=== PATIENT | male | born 1935 | race Caucasian/White ===

== ENCOUNTER 2019-01-01 08:27 | Inpatient (IN) | payer MEDICARE, OTHER ==
[2019-01-01] MEDS ORDERED: Aspirin 81 MG Tab.Chew PO ONE (08:32)
[2019-01-01] MEDS ORDERED: Sodium Chloride 0.9% 1,000 ML IV SCH ×2 (08:45→09:30)
[2019-01-01] MEDS ORDERED: Nitroglycerin 0.4 MG Tab.SL SL PRN (08:52)
--- NOTE | 2019-01-01 08:52 | EDM.PDOC ---
ED HPI GENERAL MEDICAL PROBLEM - General Chief Complaint: Chest Pain Stated Complaint: CHEST PAIN Time Seen by Provider: 01/01/19 08:52 Source of Information: Reports: Patient - History of Present Illness INITIAL COMMENTS - FREE TEXT/NARRATIVE: HISTORY AND PHYSICAL: History of present illness: [A shunt presents with epigastric pain 5 out of 10 radiating to the chest or 2 hours in duration no shortness of breath or diaphoresis no radiation to arm neck or jaw Review of systems: As per history of present illness and below otherwise all systems reviewed and negative. Past medical history: As per history of present illness and as reviewed below otherwise noncontributory. Surgical history: As per history of present illness and as reviewed below otherwise noncontributory. Social history: No reported history of drug or alcohol abuse. Family history: As per history of present illness and as reviewed below otherwise noncontributory. Physical exam: HEENT: Atraumatic, normocephalic, pupils reactive, negative for conjunctival pallor or scleral icterus, mucous membranes moist, throat clear, neck supple, nontender, trachea midline. Lungs: Clear to auscultation, breath sounds equal bilaterally, chest nontender. Heart: S1S2, regular, negative for clicks, rubs, or JVD. Abdomen: Soft, nondistended, nontender. Negative for masses or hepatosplenomegaly. Negative for costovertebral tenderness. Pelvis: Stable nontender. Genitourinary: Deferred. Rectal: Deferred. Extremities: Atraumatic, negative for cords or calf pain. Neurovascular unremarkable. Neuro: Awake, alert, oriented. Cranial nerves II through XII unremarkable. Cerebellum unremarkable. Motor and sensory unremarkable throughout. Exam nonfocal. Diagnostics: [CBC CMP UA troponin lipase Influenza EKG Chest 1 view ]CT abdomen pelvis no contrast Therapeutics: [ normal saline Zofran ] aspirin 324 mg chewable Triglyceride Impression: Pancreatitis Cough Nausea vomiting ] Definitive disposition and diagnosis as appropriate pending reevaluation and review of above. chest Pain Score (Numeric/FACES): 10 - Related Data Allergies Allergy/AdvReac Type Severity Reaction Status Date / Time No Known Allergies Allergy Verified 01/01/19 08:44 Home Meds: Home Meds . [No Known Home Meds] 01/01/19 [History] Past Medical History - Past Health History Medical/Surgical History: Denies Medical/Surgical History Social & Family History - Family History Family Medical History: Noncontributory - Tobacco Use Smoking Status *Q: Never Smoker - Recreational Drug Use Recreational Drug Use: No ED ROS GENERAL - Review of Systems Review Of Systems: See Below ED EXAM, GENERAL - Physical Exam Exam: See Below Course - Vital Signs Last Recorded V/S: Last Vital Signs Temp 97.1 F 01/01/19 08:44 Pulse 81 01/01/19 10:42 Resp 18 01/01/19 10:06 BP 118/73 01/01/19 10:42 Pulse Ox 99 01/01/19 10:42 - Orders/Labs/Meds Orders: Active Orders 24 hr Category Date Time Status EKG Documentation Completion [RC] STAT Care 01/01/19 08:32 Active RT Aerosol Therapy [RC] ASDIRECTED Care 01/01/19 08:54 Active UA RFX YOLANDA AND CULT IF INDIC [URIN] Stat Lab 01/01/19 08:32 Ordered Nitroglycerin [Nitrostat] Med 01/01/19 08:52 Active 0.4 mg SL Q5M PRN Sodium Chloride 0.9% [Normal Saline] 1,000 ml Med 01/01/19 08:45 Active IV STAT Sodium Chloride 0.9% [Normal Saline] 1,000 ml Med 01/01/19 09:30 Active IV STAT Medication Orders Sodium Chloride (Normal Saline) 1,000 mls @ 125 mls/hr IV STAT LIZ Last Admin: 01/01/19 09:12 Dose: 125 mls/hr Sodium Chloride (Normal Saline) 1,000 mls @ 150 mls/hr IV STAT LIZ Nitroglycerin (Nitrostat) 0.4 mg SL Q5M PRN PRN Reason: Chest Pain Last Admin: 01/01/19 09:17 Dose: 0.4 mg Labs: Laboratory Tests 01/01/19 01/01/19 Range/Units 08:47 08:47 WBC 9.84 (4.0-11.0) K/uL RBC 4.46 L (4.50-5.90) M/uL Hgb 14.0 (13.0-17.0) g/dL Hct 41.0 (38.0-50.0) % MCV 91.9 (80.0-98.0) fL MCH 31.4 (27.0-32.0) pg MCHC 34.1 (31.0-37.0) g/dL RDW Std Deviation 47.3 (28.0-62.0) fl RDW Coeff of Karina 14 (11.0-15.0) % Plt Count 240 (150-400) K/uL MPV 8.50 (7.40-12.00) fL Add Manual Diff YES Neutrophils % (Manual) 73 (48.0-80.0) % Band Neutrophils % 12 % Lymphocytes % (Manual) 12 L (16.0-40.0) % Monocytes % (Manual) 2 (0.0-15.0) % Basophils % (Manual) 1 (0.0-1.5) % Nucleated RBC % 0.0 /100WBC Absolute Seg Neuts 7.2 H (1.4-5.7) Band Neutrophils # 1.2 Lymphocytes # (Manual) 1.2 (0.6-2.4) Monocytes # (Manual) 0.2 (0.0-0.8) Basophils # (Manual) 0.1 (0.0-0.1) Nucleated RBCs # 0 K/uL Sodium 138 (136-148) mmol/L Potassium 4.3 (3.5-5.1) mmol/L Chloride 103 (98-107) mmol/L Carbon Dioxide 29.9 (21.0-32.0) mmol/L BUN 18 (7.0-18.0) mg/dL Creatinine 1.2 (0.8-1.3) mg/dL Est Cr Clr Drug Dosing 42.84 mL/min Estimated GFR (MDRD) 57.7 ml/min Glucose 168 H (74-106) mg/dL Calcium 9.2 (8.5-10.1) mg/dL Total Bilirubin 1.4 H (0.2-1.0) mg/dL AST 41 H (15-37) IU/L ALT 23 (14-63) IU/L Alkaline Phosphatase 95 (46-116) U/L Troponin I < 0.050 (0.000-0.056) ng/mL Total Protein 6.6 (6.4-8.2) g/dL Albumin 3.1 L (3.4-5.0) g/dL Globulin 3.5 (2.6-4.0) g/dL Albumin/Globulin Ratio 0.9 (0.9-1.6) Lipase 421 H (73-393) U/L Meds: Medications Generic Name Dose Route Start Last Admin Trade Name Freq PRN Reason Stop Dose Admin Sodium Chloride 1,000 mls @ 125 mls/hr 01/01/19 08:45 01/01/19 09:12 Normal Saline IV 125 mls/hr STAT LIZ Administration Sodium Chloride 1,000 mls @ 150 mls/hr 01/01/19 09:30 Normal Saline IV STAT LIZ Nitroglycerin 0.4 mg 01/01/19 08:52 01/01/19 09:17 Nitrostat SL 0.4 mg Q5M PRN Administration Chest Pain Discontinued Medications Generic Name Dose Route Start Last Admin Trade Name Freq PRN Reason Stop Dose Admin Albuterol/Ipratropium 3 ml 01/01/19 08:54 01/01/19 09:05 Duoneb 3.0-0.5 Mg/3 Ml NEB 01/01/19 08:55 3 ml ONETIME ONE Administration Aspirin 324 mg 01/01/19 08:32 01/01/19 09:10 Aspirin PO 01/01/19 08:33 324 mg ONETIME ONE Administration Morphine Sulfate 2 mg 01/01/19 09:30 01/01/19 09:38 Morphine IVPUSH 01/01/19 09:31 2 mg ONETIME ONE Administration Ondansetron HCl 8 mg 01/01/19 09:31 01/01/19 09:37 Zofran IVPUSH 01/01/19 09:32 8 mg ONETIME ONE Administration Departure - Departure Time of Disposition: 10:44 Disposition: Admitted As Inpatient 65 Condition: Fair Clinical Impression: Pancreatitis - Discharge Information Referrals: PCP,None [Primary Care Provider] - Forms: ED Department Discharge - My Orders Last 24 Hours: My Active Orders 01/01/19 08:32 EKG Documentation Completion [RC] STAT UA RFX YOLANDA AND CULT IF INDIC [URIN] Stat 01/01/19 08:45 Sodium Chloride 0.9% [Normal Saline] 1,000 ml IV STAT 01/01/19 08:52 Nitroglycerin [Nitrostat] 0.4 mg SL Q5M PRN 01/01/19 08:54 RT Aerosol Therapy [RC] ASDIRECTED 01/01/19 09:30 Sodium Chloride 0.9% [Normal Saline] 1,000 ml IV STAT - Assessment/Plan Last 24 Hours: My Active Orders 01/01/19 08:32 EKG Documentation Completion [RC] STAT UA RFX YOLANDA AND CULT IF INDIC [URIN] Stat 01/01/19 08:45 Sodium Chloride 0.9% [Normal Saline] 1,000 ml IV STAT 01/01/19 08:52 Nitroglycerin [Nitrostat] 0.4 mg SL Q5M PRN 01/01/19 08:54 RT Aerosol Therapy [RC] ASDIRECTED 01/01/19 09:30 Sodium Chloride 0.9% [Normal Saline] 1,000 ml IV STAT
[2019-01-01] MEDS ORDERED: Albuterol/Ipratropium 3.0-0.5 MG/3 ML Neb Soln NEB ONE (08:54)
[2019-01-01 09:15] LABS: CHLORIDE,CL 103 mmol/L (98-107); SODIUM,NA 138 mmol/L (136-148)
[2019-01-01] MEDS ORDERED: Morphine 2 MG/ML Syringe IVPUSH ONE (09:30)
[2019-01-01] MEDS ORDERED: Ondansetron 4 MG/2 ML SDV IVPUSH ONE (09:31)
--- NOTE | 2019-01-01 09:32 | CR ---
INDICATION: pain/sob INDICATION: Pain/shortness of breath. TECHNIQUE: Chest 1 view. COMPARISON: None FINDINGS: Cardiovascular and mediastinum: Heart size and vasculature are normal in caliber and appearance. Mediastinum is within normal limits. Lungs and pleural space: Lungs are clear. No sign of infiltrate or mass. No sign of pleural effusion. No pneumothorax. Bones and soft tissues: No significant findings. IMPRESSION: Lungs are clear. Dictated by Ayo Shin MD @ 01/01/2019 9:30:40 AM Dictated by: Ayo Shin MD @ 01/01/2019 09:30:49 (Electronically Signed)
--- NOTE | 2019-01-01 10:35 | CT ---
Indication: Pain. Vomiting. Technique: Multiple contiguous axial images were obtained from the lung bases through the symphysis pubis without intravenous contrast enhancement. Please note that all CT scans at this facility use dose modulation, iterative reconstruction, and/or weight-based dosing when appropriate to reduce radiation dose to as low as reasonably achievable. Comparison: None Findings: Emphysematous changes of the lungs are identified. Motion artifact degrades image quality of the lower lungs. The heart is normal in size. Coronary artery calcifications are identified. A moderate hiatal hernia which is fluid-filled is identified. The unenhanced liver, gallbladder, spleen, pancreas, adrenals, and kidneys are normal. A left adrenal mass is identified. This has Hounsfield units of 0, consistent with an adrenal adenoma. This measures 2.1 x 2.1 cm in size. The common bile duct is dilated, measuring approximately 19 mm in size. No pericholecystic free fluid or gallbladder wall thickening is definitely identified. No definite stones or sludge are seen. No hydronephrosis is identified. A left renal cyst is identified. In the pelvis, the urinary bladder and prostate gland are normal. Prostatic calcifications are identified. Sigmoid diverticulosis is identified. There is no evidence of diverticulitis. The appendix is normal in caliber. No periappendiceal fat stranding or fluid collections are identified. The small and large bowel are normal in caliber. No free air or free fluid is identified within the abdomen or pelvis. Extensive vascular calcifications of the aorta are identified. A fat containing umbilical hernia is identified. Degenerative changes of the spine are seen. Impression: Dilatation of the common bile duct. No stones or sludge are identified definitively within the gallbladder. No intrahepatic biliary ductal dilatation is identified. If clinically indicated, an ultrasound of the right upper quadrant could be performed. Small hiatal hernia with fluid in the distal esophagus. Sigmoid diverticulosis without evidence of diverticulitis. Left adrenal adenoma. Please note that all CT scans at this facility use dose modulation, iterative reconstruction, and/or weight-based dosing when appropriate to reduce radiation dose to as low as reasonably achievable. Dictated by Candy Atkins MD @ Jan 01 2019 10:19AM Signed by Dr. Candy Atkins @ Jan 01 2019 10:34AM
[2019-01-01] MEDS ORDERED: Morphine 2 MG/ML Syringe IVPUSH PRN (13:00)
[2019-01-01] MEDS ORDERED: Ondansetron 4 MG/2 ML SDV IVPUSH PRN (13:01)
[2019-01-01] MEDS: Pantoprazole 40 MG Vial IVPUSH SCH (14:20)
[2019-01-01] MEDS: Sodium Chloride 0.9% 1,000 ML IV SCH ×2 (14:51→21:26)
--- NOTE | 2019-01-01 23:13 | PCM.HP ---
H&P History of Present Illness - General Date of Service: 01/01/19 Admit Problem/Dx: Admission Diagnosis/Problem Admission Diagnosis/Problem Pancreatitis - History of Present Illness Initial Comments - Free Text/Narative: 83 yo male who presents with several month history of hiccups. Patient reports his hiccups can cause soreness in his epigastrum that radiates to the chest. He denies any chest pain, abdominal pain, fevers, or shortness of breath. chest Pain Score (Numeric/FACES): 10 - Related Data Allergies/Adverse Reactions: Allergies Allergy/AdvReac Type Severity Reaction Status Date / Time No Known Allergies Allergy Verified 01/01/19 08:44 Home Medications: Home Meds Pantoprazole Sodium 40 mg PO DAILY 30 Days #30 tablet. 01/02/19 [Rx] Past Medical History - Past Health History Medical/Surgical History: Denies Medical/Surgical History - Infectious Disease History Infectious Disease History: Reports: Shingles Other Infectious Disease History: shingles around 20 yrs ago - Past Surgical History Other HEENT Surgeries/Procedures: wears reading glass & upper dentures Other Cardiovascular Surgeries/Procedures: increase cholesterol Social & Family History - Family History Family Medical History: Noncontributory - Tobacco Use Smoking Status *Q: Never Smoker Second Hand Smoke Exposure: No - Caffeine Use Caffeine Use: Reports: Coffee - Recreational Drug Use Recreational Drug Use: No H&P Review of Systems - Review of Systems: Review Of Systems: ROS reveals no pertinent complaints other than HPI. Exam - Exam Exam: See Below - Vital Signs Vital Signs: Last Vital Signs Temp 36.3 C 01/01/19 20:00 Pulse 86 01/01/19 20:00 Resp 18 01/01/19 20:00 BP 111/60 01/01/19 20:00 Pulse Ox 100 01/01/19 22:48 Weight: 68.266 kg - Exam General: Alert, Oriented Lungs: Clear to Auscultation, Normal Respiratory Effort Cardiovascular: Regular Rate, Regular Rhythm GI/Abdominal Exam: Soft, Non-Tender Extremities: Non-Tender Skin: Warm, Dry, Intact - Patient Data Lab Results Last 24 hrs: Laboratory Results - last 24 hr 01/01/19 01/01/19 01/01/19 Range/Units 08:47 08:47 16:10 WBC 9.84 (4.0-11.0) K/uL RBC 4.46 L (4.50-5.90) M/uL Hgb 14.0 (13.0-17.0) g/dL Hct 41.0 (38.0-50.0) % MCV 91.9 (80.0-98.0) fL MCH 31.4 (27.0-32.0) pg MCHC 34.1 (31.0-37.0) g/dL RDW Std Deviation 47.3 (28.0-62.0) fl RDW Coeff of Karina 14 (11.0-15.0) % Plt Count 240 (150-400) K/uL MPV 8.50 (7.40-12.00) fL Add Manual Diff YES Neutrophils % (Manual) 73 (48.0-80.0) % Band Neutrophils % 12 % Lymphocytes % (Manual) 12 L (16.0-40.0) % Monocytes % (Manual) 2 (0.0-15.0) % Basophils % (Manual) 1 (0.0-1.5) % Nucleated RBC % 0.0 /100WBC Absolute Seg Neuts 7.2 H (1.4-5.7) Band Neutrophils # 1.2 Lymphocytes # (Manual) 1.2 (0.6-2.4) Monocytes # (Manual) 0.2 (0.0-0.8) Basophils # (Manual) 0.1 (0.0-0.1) Nucleated RBCs # 0 K/uL Sodium 138 (136-148) mmol/L Potassium 4.3 (3.5-5.1) mmol/L Chloride 103 (98-107) mmol/L Carbon Dioxide 29.9 (21.0-32.0) mmol/L BUN 18 (7.0-18.0) mg/dL Creatinine 1.2 (0.8-1.3) mg/dL Est Cr Clr Drug Dosing 42.84 mL/min Estimated GFR (MDRD) 57.7 ml/min Glucose 168 H (74-106) mg/dL Calcium 9.2 (8.5-10.1) mg/dL Total Bilirubin 1.4 H (0.2-1.0) mg/dL AST 41 H (15-37) IU/L ALT 23 (14-63) IU/L Alkaline Phosphatase 95 (46-116) U/L Troponin I < 0.050 (0.000-0.056) ng/mL Total Protein 6.6 (6.4-8.2) g/dL Albumin 3.1 L (3.4-5.0) g/dL Globulin 3.5 (2.6-4.0) g/dL Albumin/Globulin Ratio 0.9 (0.9-1.6) Lipase 421 H (73-393) U/L Urine Color DARK YELLOW Urine Appearance HAZY Urine pH 6.0 (5.0-8.0) Ur Specific [place] 1.020 (1.001-1.035) Urine Protein TRACE H (NEGATIVE) mg/dL Urine Glucose (UA) NEGATIVE (NEGATIVE) mg/dL Urine Ketones 15 H (NEGATIVE) mg/dL Urine Occult Blood NEGATIVE (NEGATIVE) Urine Nitrite NEGATIVE (NEGATIVE) Urine Bilirubin MODERATE H (NEGATIVE) Urine Urobilinogen >=8.0 H (<2.0) EU/dL Ur Leukocyte Esterase NEGATIVE (NEGATIVE) Urine RBC NONE SEEN (0-2/HPF) Urine WBC RARE (0-5/HPF) Ur Epithelial Cells RARE (NONE-FEW) Urine Bacteria NOT SEEN (NEGATIVE) Result Diagrams: 01/02/19 05:53 01/02/19 05:53 Sang Results Last 24 hrs: Microbiology 01/01/19 09:25 Influenza Type A Antigen Screen - Final Nasopharyngeal Swab NEGATIVE INFLUENZA A VIRUS AG Influenza Type B Antigen Screen - Final NEGATIVE INFLUENZA B VIRUS AG Problem List Initiated/Reviewed/Updated: Yes Orders Last 24hrs: Active Orders 24 hr Category Date Time Status Admission Status [Patient Status] [ADT] Stat ADT 01/01/19 10:45 Active Antiembolic Devices [RC] PER UNIT ROUTINE Care 01/01/19 22:49 Active EKG Documentation Completion [RC] STAT Care 01/01/19 08:32 Active Influenza Vaccine Charge [RC] .DISCHARGE Care 01/01/19 12:14 Active Oxygen Therapy [RC] PRN Care 01/01/19 22:48 Active RT Aerosol Therapy [RC] ASDIRECTED Care 01/01/19 08:54 Active Telemetry Monitoring [Cardiac Monitoring] [RC] Q8H Care 01/01/19 11:09 Active Up ad Val [RC] ASDIRECTED Care 01/01/19 22:48 Active VTE/DVT Education [RC] PER UNIT ROUTINE Care 01/01/19 22:48 Active Vital Signs [RC] Q4H Care 01/01/19 22:48 Active NPO [Nothing Per Oral Diet] [DIET] Diet 01/01/19 Lunch Active Abdomen Ltd [US] Routine Exams 01/01/19 22:49 Ordered CBC WITH AUTO DIFF [HEME] AM Lab 01/02/19 05:11 Ordered COMPREHENSIVE METABOLIC PN,CMP [CHEM] AM Lab 01/02/19 05:11 Ordered Morphine Med 01/01/19 13:00 Active 2 mg IVPUSH Q3H PRN Nitroglycerin [Nitrostat] Med 01/01/19 08:52 Active 0.4 mg SL Q5M PRN Ondansetron [Zofran] Med 01/01/19 13:01 Active 4 mg IVPUSH Q3H PRN Pantoprazole [ProTONIX IV] Med 01/01/19 13:00 Active 40 mg IVPUSH DAILY Sodium Chloride 0.9% [Normal Saline] 1,000 ml Med 01/01/19 13:00 Active IV ASDIRECTED Sequential Compression Device [OM.PC] Per Unit Routine Oth 01/01/19 22:48 Ordered Resuscitation Status Routine Resus Stat 01/01/19 22:48 Ordered Medication Orders Sodium Chloride (Normal Saline) 1,000 mls @ 150 mls/hr IV ASDIRECTED [facility] Last Admin: 01/01/19 21:26 Dose: 150 mls/hr Infusion: 01/01/19 21:26 Dose: 150 mls/hr Admin: 01/01/19 14:51 Dose: 150 mls/hr Morphine Sulfate (Morphine) 2 mg IVPUSH Q3H PRN PRN Reason: Pain Nitroglycerin (Nitrostat) 0.4 mg SL Q5M PRN PRN Reason: Chest Pain Last Admin: 01/01/19 09:17 Dose: 0.4 mg Ondansetron HCl (Zofran) 4 mg IVPUSH Q3H PRN PRN Reason: Nausea Pantoprazole Sodium (Protonix Iv) 40 mg IVPUSH DAILY [facility] Last Admin: 01/01/19 14:20 Dose: 40 mg Assessment/Plan Comment:: 83 yo male admitted for abdominal pain likely from GERD with mildly elevated lipase. Will treat with IV fluids and protonix.
[2019-01-02] MEDS: Sodium Chloride 0.9% 1,000 ML IV SCH ×2 (04:16→11:10)
[2019-01-02 06:34] LABS: CHLORIDE,CL 108 mmol/L (98-107); SODIUM,NA 137 mmol/L (136-148)
[2019-01-02] MEDS: Pantoprazole 40 MG Vial IVPUSH SCH (08:55)
--- NOTE | 2019-01-02 13:30 | US ---
EXAMINATION: Right upper quadrant ultrasound HISTORY: Pain COMPARISON: CT dated 01/01/2019 TECHNIQUE: Grayscale and color Doppler imaging obtained of the right upper quadrant. FINDINGS: The visualized pancreas appears normal. The liver is normal in contour and echotexture without a focal hepatic mass. The gallbladder wall thickness is normal. No pericholecystic fluid or shadowing gallstones. Right kidney measures 8.9 cm [id number] without evidence of hydronephrosis. Negative sonographic Raymond's sign. IMPRESSION: Grossly unremarkable right upper quadrant ultrasound.
--- NOTE | 2019-01-02 17:56 | PCM.DCSUM1 ---
Discharge Summary - Hospital Course HPI Initial Comments: Discharge Summary Date of admission: 01/01/19 Date of discharge: 01/02/19 Admitting diagnosis: #1. Abdominal pain secondary to gastroesophageal reflux disease and mild elevation of lipase and elevated bilirubin #2. CT abdomen indicating dilated common bile duct, mass of left adrenal gland, and small hiatal hernia #3. #4. #5. Discharge diagnoses: #1. Abdominal pain now resolved #2. Dilated common bile duct at 1.7 cm per abdominal ultrasound evaluation with mildly elevated total bilirubin #3. #4. #5. Consultations: None Procedures: None Hospitalization course: Patient was admitted secondary to abdominal pain, was nothing by mouth with IV fluids to give bowel rest. Patient did well overnight no longer had abdominal pain or discomfort throughout the next day. Due to the elevation of the total bilirubin from 1.4 to 1.7 as well as dilation seen on the CT abdomen pelvis patient had a abdominal ultrasound done. Abdominal Did Not Show Any abnormalities of the gallbladder, liver, pancreas. There was a 1.7 cm dilation of the common bile duct noted without any filling defect. Based on these results I did speak with general surgery, Dr. Hansen recommended that given that the patient does not have any GI discomfort, is tolerating his oral diet, and has no visual stones seen on imaging it is reasonable to discharge the patient home with a follow-up in 2-4 weeks with his primary care provider to assess whether or not the total bilirubin is rising or has normalized. It is also recommended that the primary care provider assess the small esophageal hernia for which the patient has been started on Protonix for his gastroesophageal reflux disease as well as well as assess the left adrenal mass that was appreciated. This was explained to the family as well as the patient and as the patient was asymptomatic and wanted to go home the patient was subsequently discharged. Patient is to follow-up with Dr. Love at the [facility] residency clinic on January 09, 2019. Diagnosis: Stroke: No Modified Augustina Scale: No Symptoms at All Modified Stanley Scale Score: 0 - Discharge Data Discharge Date: 01/02/19 Discharge Disposition: Home, Self-Care 01 Condition: Stable - Patient Instructions Diet: Regular Diet as Tolerated Activity: As Tolerated Driving: Do Not Drive Showering/Bathing: May Shower Notify Provider of: Fever, Increased Pain, Swelling and Redness, Nausea and/or Vomiting - Discharge Plan Prescriptions/Med Rec: Pantoprazole Sodium 40 mg PO DAILY 30 Days #30 tablet. Home Medications: Home Meds Pantoprazole Sodium 40 mg PO DAILY 30 Days #30 tablet. 01/02/19 [Rx] Patient Handouts: Acute Pancreatitis, [id number], Pantoprazole tablets Referrals: Mejia Rosas MD [Resident] - 01/09/19 2:00 pm - Discharge Summary/Plan Comment DC Time >30 min.: No - Patient Data Vitals - Most Recent: Last Vital Signs Temp 36.8 C 01/02/19 11:17 Pulse 72 01/02/19 11:17 Resp 16 01/02/19 11:17 BP 99/54 L 01/02/19 11:17 Pulse Ox 96 01/02/19 11:17 Weight - Most Recent: 68.266 kg I&O - Last 24 hours: Intake & Output 01/02/19 01/02/19 01/02/19 06:59 14:59 22:59 Intake Total 1100 Output Total 570 Balance 530 Lab Results - Last 24 hrs: Laboratory Results - last 24 hr 01/02/19 01/02/19 Range/Units 05:53 05:53 WBC 7.99 (4.0-11.0) K/uL RBC 3.75 L (4.50-5.90) M/uL Hgb 11.4 L (13.0-17.0) g/dL Hct 35.3 L (38.0-50.0) % MCV 94.1 (80.0-98.0) fL MCH 30.4 (27.0-32.0) pg MCHC 32.3 (31.0-37.0) g/dL RDW Std Deviation 49.4 (28.0-62.0) fl RDW Coeff of Karina 14 (11.0-15.0) % Plt Count 181 (150-400) K/uL MPV 8.60 (7.40-12.00) fL Neut % (Auto) 83.6 H (48.0-80.0) % Lymph % (Auto) 7.6 L (16.0-40.0) % [place] % (Auto) 7.9 (0.0-15.0) % Eos % (Auto) 0.6 (0.0-7.0) % Baso % (Auto) 0.3 (0.0-1.5) % Neut # (Auto) 6.7 H (1.4-5.7) K/uL Lymph # (Auto) 0.6 (0.6-2.4) K/uL [place] # (Auto) 0.6 (0.0-0.8) K/uL Eos # (Auto) 0.1 (0.0-0.7) K/uL Baso # (Auto) 0.0 (0.0-0.1) K/uL Nucleated RBC % 0.0 /100WBC Nucleated RBCs # 0 K/uL Sodium 137 (136-148) mmol/L Potassium 4.3 (3.5-5.1) mmol/L Chloride 108 H (98-107) mmol/L Carbon Dioxide 23.1 (21.0-32.0) mmol/L BUN 16 (7.0-18.0) mg/dL Creatinine 1.0 (0.8-1.3) mg/dL Est Cr Clr Drug Dosing 51.41 mL/min Estimated GFR (MDRD) > 60.0 ml/min Glucose 94 (74-106) mg/dL Calcium 7.9 L (8.5-10.1) mg/dL Total Bilirubin 1.7 H (0.2-1.0) mg/dL AST 43 H (15-37) IU/L ALT 38 (14-63) IU/L Alkaline Phosphatase 95 (46-116) U/L Total Protein 5.1 L (6.4-8.2) g/dL Albumin 2.2 L (3.4-5.0) g/dL Globulin 2.9 (2.6-4.0) g/dL Albumin/Globulin Ratio 0.8 L (0.9-1.6) Med Orders - Current: Current Medications Sodium Chloride (Normal Saline) 1,000 mls @ 150 mls/hr IV ASDIRECTED [facility] Last Admin: 01/02/19 11:10 Dose: 150 mls/hr Morphine Sulfate (Morphine) 2 mg IVPUSH Q3H PRN PRN Reason: Pain Nitroglycerin (Nitrostat) 0.4 mg SL Q5M PRN PRN Reason: Chest Pain Last Admin: 01/01/19 09:17 Dose: 0.4 mg Ondansetron HCl (Zofran) 4 mg IVPUSH Q3H PRN PRN Reason: Nausea Pantoprazole Sodium (Protonix Iv) 40 mg IVPUSH DAILY [facility] Last Admin: 01/02/19 08:55 Dose: 40 mg Discontinued Medications Albuterol/Ipratropium (Duoneb 3.0-0.5 Mg/3 Ml) 3 ml NEB ONETIME ONE Stop: 01/01/19 08:55 Last Admin: 01/01/19 09:05 Dose: 3 ml Aspirin (Aspirin) 324 mg PO ONETIME ONE Stop: 01/01/19 08:33 Last Admin: 01/01/19 09:10 Dose: 324 mg Sodium Chloride (Normal Saline) 1,000 mls @ 125 mls/hr IV STAT [facility] Last Admin: 01/01/19 09:12 Dose: 125 mls/hr Sodium Chloride (Normal Saline) 1,000 mls @ 150 mls/hr IV STAT [facility] Influenza Virus Vaccine (Pharmacy To Dose - Influenza Vaccine) 1 each IM ONETIME ONE Stop: 01/01/19 12:15 Influenza Virus Vaccine (Fluzone High-Dose Syringe) 180 mcg IM .ONCE ONE Stop: 01/01/19 12:31 Morphine Sulfate (Morphine) 2 mg IVPUSH ONETIME ONE Stop: 01/01/19 09:31 Last Admin: 01/01/19 09:38 Dose: 2 mg Ondansetron HCl (Zofran) 8 mg IVPUSH ONETIME ONE Stop: 01/01/19 09:32 Last Admin: 01/01/19 09:37 Dose: 8 mg
== END 2019-01-02 18:25 | disposition home or self-care (01) | DRG 392 ==
LOC: MW.ED 08:27 → MW.MS 11:16
PROVIDERS: ADMIT Internal Medicine; ATTEND Internal Medicine
DX: K85.90 Acute pancreatitis without necrosis or infection, unspecified (principal); R10.13 Epigastric pain; R07.9 Chest pain, unspecified; R05 Cough; R11.2 Nausea with vomiting, unspecified; K21.9 Gastro-esophageal reflux disease without esophagitis; K44.9 Diaphragmatic hernia without obstruction or gangrene; E27.9 Disorder of adrenal gland, unspecified
CPT/HCPCS: 36415; 71045; 74176; 80053; 83690; 84484; 85025; 87804 ×2; 93005; 94640; 96361; 96374; 99285; A9270 ×2; J2270; J2405; J7040; 76705; 76705-26; 81001; C9113; J7620-GY

== ENCOUNTER 2019-02-25 10:09 | Emergency (ER) | payer MEDICARE, OTHER ==
[2019-02-25] MEDS ORDERED: Sodium Chloride 0.9% 10 ML Syringe FLUSH PRN (10:25)
[2019-02-25] MEDS ORDERED: Sodium Chloride 0.9% 2.5 ML Syringe FLUSH PRN (10:25)
[2019-02-25] MEDS ORDERED: Sodium Chloride 0.9% 1,000 ML IV ONE (10:37)
[2019-02-25] MEDS ORDERED: Ondansetron 4 MG/2 ML SDV IVPUSH ONE ×2 (10:37→11:45)
[2019-02-25 10:49] LABS: CHLORIDE,CL 105 mmol/L (98-107); SODIUM,NA 141 mmol/L (136-148)
--- NOTE | 2019-02-25 10:52 | EDM.PDOC ---
ED HPI GENERAL MEDICAL PROBLEM - General Chief Complaint: Chest Pain Stated Complaint: CHEST PAIN Time Seen by Provider: 02/25/19 10:15 Source of Information: Reports: Patient History Limitations: Reports: No Limitations - History of Present Illness INITIAL COMMENTS - FREE TEXT/NARRATIVE: Presents to the ER reporting a one hour history of lower chest and epigastric pain. The patient states that he was recently seen for epigastric pain and hiccups. He initially denied nausea, diaphoresis or shortness of breath. As the interview progressed however he started to complain of some nausea. A review of the records indicates that at the end of December of this year he was hospitalized for pancreatitis he also had a positive H. pylori. chest pain Pain Score (Numeric/FACES): 3 - Related Data Allergies Allergy/AdvReac Type Severity Reaction Status Date / Time No Known Allergies Allergy Verified 02/25/19 10:14 Home Meds: Home Meds Pantoprazole Sodium 40 mg PO DAILY 30 Days #30 tablet. 01/02/19 [Rx] Ondansetron [Zofran ODT] 1 tab PO Q6H PRN #8 tab.dis 02/25/19 [Rx] Past Medical History - Past Health History Medical/Surgical History: Denies Medical/Surgical History - Infectious Disease History Infectious Disease History: Reports: Chicken Pox Other Infectious Disease History: shingles around 20 yrs ago - Past Surgical History Other HEENT Surgeries/Procedures: wears reading glass & upper dentures Other Cardiovascular Surgeries/Procedures: increase cholesterol GI Surgical History: Reports: EGD Social & Family History - Family History Family Medical History: Noncontributory - Tobacco Use Smoking Status *Q: Never Smoker - Caffeine Use Caffeine Use: Reports: Coffee - Recreational Drug Use Recreational Drug Use: No ED ROS GENERAL - Review of Systems Review Of Systems: ROS reveals no pertinent complaints other than HPI. ED EXAM, GENERAL - Physical Exam Exam: See Below Exam Limited By: No Limitations General Appearance: Alert, No Apparent Distress Ears: Normal External Exam Nose: Normal Inspection Throat/Mouth: Normal Inspection Head: Atraumatic, Normocephalic Neck: Normal Inspection Respiratory/Chest: No Respiratory Distress, Lungs Clear, Normal Breath Sounds Cardiovascular: Normal Peripheral Pulses, Regular Rate, Rhythm, No Murmur GI/Abdominal: Normal Bowel Sounds, Soft, Non-Tender, No Distention Back Exam: Normal Inspection Extremities: Normal Inspection Neurological: Alert, Oriented, Normal Cognition Psychiatric: Normal Affect, Normal Mood Skin Exam: Warm, Dry, Intact, Normal Color, No Rash Lymphatic: No Adenopathy Course - Vital Signs Last Recorded V/S: Last Vital Signs Temp 36.4 C 02/25/19 10:14 Pulse 79 02/25/19 12:14 Resp 15 02/25/19 12:14 BP 127/81 02/25/19 12:14 Pulse Ox 96 02/25/19 12:14 - Orders/Labs/Meds Orders: Active Orders 24 hr Category Date Time Status EKG 12 Lead [EKG Documentation Completion] [RC] STAT Care 02/25/19 10:34 Active EKG Documentation Completion [RC] STAT Care 02/25/19 10:25 Active Sodium Chloride 0.9% [Saline Flush] Med 02/25/19 10:25 Active 10 ml FLUSH ASDIRECTED PRN Sodium Chloride 0.9% [Saline Flush] Med 02/25/19 10:25 Active 2.5 ml FLUSH ASDIRECTED PRN Saline Lock Insert [OM.PC] Stat Oth 02/25/19 10:25 Ordered Medication Orders Sodium Chloride (Saline Flush) 10 ml FLUSH ASDIRECTED PRN PRN Reason: Keep Vein Open Last Admin: 02/25/19 10:42 Dose: 10 ml Sodium Chloride (Saline Flush) 2.5 ml FLUSH ASDIRECTED PRN PRN Reason: Keep Vein Open Last Admin: 02/25/19 10:42 Dose: 2.5 ml Labs: Laboratory Tests 02/25/19 02/25/19 Range/Units 10:22 10:22 WBC 7.56 (4.0-11.0) K/uL RBC 4.68 (4.50-5.90) M/uL Hgb 14.3 (13.0-17.0) g/dL Hct 43.5 (38.0-50.0) % MCV 92.9 (80.0-98.0) fL MCH 30.6 (27.0-32.0) pg MCHC 32.9 (31.0-37.0) g/dL RDW Std Deviation 45.5 (28.0-62.0) fl RDW Coeff of Karina 14 (11.0-15.0) % Plt Count 153 (150-400) K/uL MPV 8.90 (7.40-12.00) fL Neut % (Auto) 74.4 (48.0-80.0) % Lymph % (Auto) 16.3 (16.0-40.0) % [place] % (Auto) 7.4 (0.0-15.0) % Eos % (Auto) 1.5 (0.0-7.0) % Baso % (Auto) 0.4 (0.0-1.5) % Neut # (Auto) 5.6 (1.4-5.7) K/uL Lymph # (Auto) 1.2 (0.6-2.4) K/uL [place] # (Auto) 0.6 (0.0-0.8) K/uL Eos # (Auto) 0.1 (0.0-0.7) K/uL Baso # (Auto) 0.0 (0.0-0.1) K/uL Nucleated RBC % 0.0 /100WBC Nucleated RBCs # 0 K/uL Sodium 141 (136-148) mmol/L Potassium 4.0 (3.5-5.1) mmol/L Chloride 105 (98-107) mmol/L Carbon Dioxide 25.7 (21.0-32.0) mmol/L BUN 16 (7.0-18.0) mg/dL Creatinine 1.3 (0.8-1.3) mg/dL Est Cr Clr Drug Dosing 38.05 mL/min Estimated GFR (MDRD) 52.6 ml/min Glucose 144 H (74-106) mg/dL Calcium 8.7 (8.5-10.1) mg/dL Total Bilirubin 1.7 H (0.2-1.0) mg/dL AST 62 H (15-37) IU/L ALT 28 (14-63) IU/L Alkaline Phosphatase 72 (46-116) U/L Troponin I < 0.050 (0.000-0.056) ng/mL Total Protein 7.3 (6.4-8.2) g/dL Albumin 3.8 (3.4-5.0) g/dL Globulin 3.5 (2.6-4.0) g/dL Albumin/Globulin Ratio 1.1 (0.9-1.6) Lipase 400 H (73-393) U/L Meds: Medications Generic Name Dose Route Start Last Admin Trade Name Freq PRN Reason Stop Dose Admin Sodium Chloride 10 ml 02/25/19 10:25 02/25/19 10:42 Saline Flush FLUSH 10 ml ASDIRECTED PRN Administration Keep Vein Open Sodium Chloride 2.5 ml 02/25/19 10:25 02/25/19 10:42 Saline Flush FLUSH 2.5 ml ASDIRECTED PRN Administration Keep Vein Open Discontinued Medications Generic Name Dose Route Start Last Admin Trade Name Freq PRN Reason Stop Dose Admin Sodium Chloride 1,000 mls @ 999 mls/hr 02/25/19 10:37 02/25/19 10:42 Normal Saline IV 02/25/19 11:37 999 mls/hr STAT ONE Administration Ondansetron HCl 4 mg 02/25/19 10:37 02/25/19 10:42 Zofran IVPUSH 02/25/19 10:38 4 mg ONETIME ONE Administration Ondansetron HCl 4 mg 02/25/19 11:45 02/25/19 12:09 Zofran IVPUSH 02/25/19 11:46 4 mg ONETIME ONE Administration - Re-Assessments/Exams Free Text/Narrative Re-Assessment/Exam: 02/25/19 12:29 After vomiting, the patient felt much better. No diaphoresis nausea or pain. Blood pressure 120s over 70s, heart rate 70s, O2 sat 98%. Dr. Salmon, hospitalist and Dr. Cody emergency room physician reviewed the case. The patient was offered and encouraged admission but declined. He was advised that his lab work looked about the same as the last time he was here and that he does have pancreatitis. He states that he is willing to follow-up at the clinic for further evaluation of his recurrent pancreatitis and symptoms. Departure - Departure Time of Disposition: 12:33 Disposition: Home, Self-Care 01 Condition: Good Clinical Impression: Pancreatitis Qualifiers: Chronicity: acute Pancreatitis type: unspecified pancreatitis type Prescriptions: Ondansetron [Zofran ODT] 1 tab PO Q6H PRN #8 tab.dis PRN Reason: Nausea Referrals: PCP,Unknown [Primary Care Provider] - Mejia Rosas MD [Resident] - Forms: ED Department Discharge Additional Instructions: 1. Drink plenty of clear fluids 2. Zofran ODT every 4 hours as needed for nausea 3. You must follow-up in the clinic for further evaluation and treatment. Make an appointment with your primary provider this week. 4. Do not lay down after eating, have your son put a couple of blocks under the head of the bed, avoid greasy and spicy foods and excessive caffeine. You may have some coffee! 5. Return promptly for chest pain, vomiting and not keeping down oral fluids. - My Orders Last 24 Hours: My Active Orders 02/25/19 10:25 EKG Documentation Completion [RC] STAT Sodium Chloride 0.9% [Saline Flush] 10 ml FLUSH ASDIRECTED PRN Sodium Chloride 0.9% [Saline Flush] 2.5 ml FLUSH ASDIRECTED PRN Saline Lock Insert [OM.PC] Stat 02/25/19 10:34 EKG 12 Lead [EKG Documentation Completion] [RC] STAT - Assessment/Plan Last 24 Hours: My Active Orders 02/25/19 10:25 EKG Documentation Completion [RC] STAT Sodium Chloride 0.9% [Saline Flush] 10 ml FLUSH ASDIRECTED PRN Sodium Chloride 0.9% [Saline Flush] 2.5 ml FLUSH ASDIRECTED PRN Saline Lock Insert [OM.PC] Stat 02/25/19 10:34 EKG 12 Lead [EKG Documentation Completion] [RC] STAT
== END 2019-02-25 13:00 | disposition home or self-care (01) ==
LOC: MW.ED 10:09
DX: K85.90 Acute pancreatitis without necrosis or infection, unspecified (principal)
CPT/HCPCS: 36415; 80053; 83690; 84484; 85025; 93005; 96361; 96374; 96376; 99285; J2405; J7040; 99283

== ENCOUNTER 2019-07-03 17:47 | Emergency (ER) | payer MEDICARE, OTHER ==
[2019-07-03] MEDS ORDERED: Etomidate 2 MG/ML 20 ML SDV IVPUSH ONE ×2 (17:51→18:01)
[2019-07-03] MEDS ORDERED: Rocuronium 100 MG/10 ML Syringe IVPUSH ONE (18:01)
[2019-07-03] MEDS ORDERED: Sodium Chloride 0.9% 1,000 ML IV ONE (18:01)
[2019-07-03] MEDS ORDERED: Succinylcholine 200 MG/10 ML MDV IV ONE (18:02)
[2019-07-03] MEDS ORDERED: Propofol 200 MG/20 ML SDV IVPUSH ONE (18:09)
--- NOTE | 2019-07-03 18:09 | EDM.PDOC ---
ED HPI GENERAL MEDICAL PROBLEM - General Chief Complaint: Trauma Stated Complaint: EMS ARRIVAL Time Seen by Provider: 07/03/19 17:57 - History of Present Illness INITIAL COMMENTS - FREE TEXT/NARRATIVE: HISTORY AND PHYSICAL: History of present illness: Patient 83-year-old white male with unknown past medical history presents by EMS unresponsive after they were called for patient being down in the garage with petroleum products around his mouth and face. He was unresponsive upon arrival in the ER his breathing was labored he was not protecting his airway. Patient was noted have petroleum products about his face and in his mouth and noted on intubation. Review of systems: As per history of present illness and below otherwise all systems reviewed and negative. Past medical history: As per history of present illness and as reviewed below otherwise noncontributory. Surgical history: As per history of present illness and as reviewed below otherwise noncontributory. Social history: No reported history of drug or alcohol abuse. Family history: As per history of present illness and as reviewed below otherwise noncontributory. Physical exam: HEENT: The patient multiple abrasions and forehead and superficial laceration noted no step-off no depression normocephalic, pupils reactive, negative for conjunctival pallor or scleral icterus, c-collar applied trachea midline. Lungs: Worse bilaterally with scattered rhonchi, breath sounds equal bilaterally , chest nontender. Heart: S1S2, regular, negative for clicks, rubs, or JVD. Abdomen: Soft, nondistended, . Pelvis: Stable nontender. Genitourinary: Deferred. Rectal: Deferred. Extremities: Atraumatic, . Neurovascular unremarkable. Neuro: Patient unresponsive breathing markedly labored no purposeful movements limited neuro exam Diagnostics: CBC CMP troponin PT/INR chest x-ray ABG blood culture 2 lactic acid carboxyhemoglobin UA urine drug screen Therapeutics: Patient was intubated via rapid sequence intubation 7.5 ET tube as noted petroleum products noted in oropharynx suctioned aggressively prior to intubation intubated without incident good color change chest x-ray confirmed ET tube in good position NG tube was placed as well as Nieto catheter Impression: #1 altered mental status #2 acute respiratory distress with ventilatory insufficiency #3 GI bleed Definitive disposition and diagnosis as appropriate pending reevaluation and review of above. - Related Data Allergies Allergy/AdvReac Type Severity Reaction Status Date / Time No Known Allergies Allergy Verified 02/25/19 10:14 Home Meds: Home Meds Pantoprazole Sodium 40 mg PO DAILY 30 Days #30 tablet. 01/02/19 [Rx] Ondansetron [Zofran ODT] 1 tab PO Q6H PRN #8 tab.dis 02/25/19 [Rx] Past Medical History - Past Health History Medical/Surgical History: Denies Medical/Surgical History - Infectious Disease History Infectious Disease History: Reports: Chicken Pox Other Infectious Disease History: shingles around 20 yrs ago - Past Surgical History Other HEENT Surgeries/Procedures: wears reading glass & upper dentures Other Cardiovascular Surgeries/Procedures: increase cholesterol GI Surgical History: Reports: EGD Social & Family History - Family History Family Medical History: Noncontributory - Caffeine Use Caffeine Use: Reports: Coffee Review of Systems - Review of Systems Review Of Systems: ROS reveals no pertinent complaints other than HPI. ED EXAM, GENERAL - Physical Exam Exam: See Below (Dictation) Course - Orders/Labs/Meds Orders: Active Orders 24 hr Category Date Time Status EKG Documentation Completion [RC] STAT Care 07/03/19 17:58 Active Chest 1V Frontal [CR] Stat Exams 07/03/19 17:58 Ordered BLOOD GAS ARTERIAL [BG] Stat Lab 07/03/19 17:58 Ordered CARBOXYHEMOGLOBIN [BG] Stat Lab 07/03/19 17:58 Ordered CBC WITH AUTO DIFF [HEME] Stat Lab 07/03/19 17:58 Ordered COMPREHENSIVE METABOLIC PN,CMP [CHEM] Stat Lab 07/03/19 17:58 Ordered DRUG SCREEN, URINE [URCHEM] Stat Lab 07/03/19 17:58 Ordered INR,PT,PROTHROMBIN TIME [COAG] Stat Lab 07/03/19 17:58 Ordered LACTIC ACID,WHOLE BLOOD [BG] Stat Lab 07/03/19 17:58 Ordered TROPONIN I [CHEM] Stat Lab 07/03/19 17:58 Ordered UA RFX YOLANDA AND CULT IF INDIC [URIN] Stat Lab 07/03/19 17:58 Ordered Meds: Medications Discontinued Medications Generic Name Dose Route Start Last Admin Trade Name Freq PRN Reason Stop Dose Admin Propofol Confirm 07/03/19 17:55 Diprivan 100 Ml Administered 07/03/19 17:56 Dose 100 mls @ as directed .ROUTE .STK-MED ONE Departure - Departure Time of Disposition: 18:09 Disposition: DC/Tfer to Acute Hospital 02 Condition: Critical Clinical Impression: Acute respiratory distress, Ventilatory failure, Altered mental status - Discharge Information Referrals: PCP,Unknown [Primary Care Provider] - - My Orders Last 24 Hours: My Active Orders 07/03/19 17:58 EKG Documentation Completion [RC] STAT Chest 1V Frontal [CR] Stat BLOOD GAS ARTERIAL [BG] Stat CARBOXYHEMOGLOBIN [BG] Stat CBC WITH AUTO DIFF [HEME] Stat COMPREHENSIVE METABOLIC PN,CMP [CHEM] Stat DRUG SCREEN, URINE [URCHEM] Stat INR,PT,PROTHROMBIN TIME [COAG] Stat LACTIC ACID,WHOLE BLOOD [BG] Stat TROPONIN I [CHEM] Stat UA RFX YOLANDA AND CULT IF INDIC [URIN] Stat - Assessment/Plan Last 24 Hours: My Active Orders 07/03/19 17:58 EKG Documentation Completion [RC] STAT Chest 1V Frontal [CR] Stat BLOOD GAS ARTERIAL [BG] Stat CARBOXYHEMOGLOBIN [BG] Stat CBC WITH AUTO DIFF [HEME] Stat COMPREHENSIVE METABOLIC PN,CMP [CHEM] Stat DRUG SCREEN, URINE [URCHEM] Stat INR,PT,PROTHROMBIN TIME [COAG] Stat LACTIC ACID,WHOLE BLOOD [BG] Stat TROPONIN I [CHEM] Stat UA RFX YOLANDA AND CULT IF INDIC [URIN] Stat
[2019-07-03 18:29] LABS: CHLORIDE,CL 104 mmol/L (98-107); SODIUM,NA 142 mmol/L (136-148)
--- NOTE | 2019-07-03 19:02 | CR ---
INDICATION: Aspiration of oil, intubation TECHNIQUE: Chest radiograph 1 view COMPARISON: 01/01/2019 FINDINGS: Mediastinum: The mediastinum is normal in appearance. The heart silhouette is normal in size and morphology. The endotracheal tube tip is positioned 5.3 cm from the stanley. Lung: Hazy airspace infiltrates are present in the lateral left lower lung zone which may be due to aspiration. No pneumothorax is identified. IMPRESSION: 1. Hazy airspace infiltrates are present in the lateral left lower lung zone which may be due to aspiration. Dictated by Martinez Bunn MD @ 07/03/2019 7:01:02 PM Dictated by: Martinez Bunn MD @ 07/03/2019 19:01:06 (Electronically Signed)
== END 2019-07-03 18:36 ==
LOC: MW.ED 17:47
DX: R41.82 Altered mental status, unspecified (principal); R06.03 Acute respiratory distress; J95.850 Mechanical complication of respirator; K92.2 Gastrointestinal hemorrhage, unspecified
CPT/HCPCS: 31500; 36415; 36600; 71045; 80053; 80305; 81001; 82375; 82803; 83605; 84484; 85025; 85610; 87040; 96365; 99291; G0390; G0480; J0330; J2704; J3490; J7040; 93005